=== PATIENT | female | born 1945 | race Caucasian/White ===

== ENCOUNTER → 2023-12-11 12:44 | Outpatient (REF) | payer OTHER, SELFPAY | LOC: HWLAB 12:44 | PROVIDERS: ATTENDING PHYSICIAN Thoracic Surgery (Cardiothoracic Vascular Surgery); FAMILY PHYSICIAN Family Medicine | DX: I71.03 Dissection of thoracoabdominal aorta (principal); I71.019 Dissection of thoracic aorta, unspecified; I34.0 Nonrheumatic mitral (valve) insufficiency; I71.011 Dissection of aortic arch | CPT/HCPCS: 82565 ==

== ENCOUNTER → 2023-12-18 13:16 | Outpatient (REF) | payer OTHER, SELFPAY | LOC: HWRCS 13:16 | PROVIDERS: ATTENDING PHYSICIAN Internal Medicine Cardiovascular Disease; FAMILY PHYSICIAN Family Medicine; REFERRING PHYSICIAN Thoracic Surgery (Cardiothoracic Vascular Surgery) | DX: I71.03 Dissection of thoracoabdominal aorta (principal); I34.0 Nonrheumatic mitral (valve) insufficiency; I35.1 Nonrheumatic aortic (valve) insufficiency | CPT/HCPCS: 93306 ==

== ENCOUNTER → 2024-01-01 12:14 | Outpatient (REF) | payer OTHER, SELFPAY ==
[2024-01-01 16:02] LABS: ALT (SGPT) 18 U/L (0-35); AST (SGOT) 31 U/L (14-36); Albumin 4.2 g/dl (3.5-5.0); Alkaline Phosphatase 70 U/L (38-126); Blood Urea Nitrogen 22 mg/dl (7-17); Calcium 9.8 mg/dl (8.4-10.2); Carbon Dioxide 27 mmol/L (22-30); Chloride 101 mmol/L (98-107); Glucose 106 mg/dl (70-99); HDL Cholesterol 69 mg/dl; LDL Cholesterol, Calculated 59 mg/dl; Potassium 4.2 mmol/L (3.5-5.1); Sodium 141 mmol/L (135-145); Total Bilirubin 0.8 mg/dl (0.2-1.3); Total Cholesterol 146 mg/dl (50-199); Triglyceride 92 mg/dl (10-149); Very Low Density Lipoprotein 18 mg/dl (0-30); eGFR 57.31
[2024-01-01 16:04] LABS: % Basophils 0.8 % (0-2); % Eosinophils 2.7 % (0-6); % Immature Granulocytes 0.2 % (0-0.5); % Lymphocytes 17.7 % (20.5-51.1); % Monocytes 9.9 % (1.7-9.3); % Neutrophils 68.7 % (42.2-75.2); Absolute Eosinophils 0.1 10^3/uL (0-0.7); Absolute Lymphocytes 0.9 10^3/uL (1.2-3.4); Absolute Monocytes 0.5 10^3/uL (0.1-0.6); Absolute Neutrophils 3.6 10^3/uL (1.4-6.5); Hematocrit 40.3 % (37.0-47.0); Hemoglobin 13.4 g/dL (12.0-16.0); Mean Corp Hgb Conc. 33.3 g/dL (33.0-37.0); Mean Corpuscular Volume 93.3 fL (81.0-99.0); Nucleated Red Blood Cells % 0 %; Platelet Count 233 10^3/uL (130-400); Red Blood Cell Count 4.32 10^6/uL (4.20-5.40); Red Cell Dist. Width 13.3 % (11.5-14.5); White Blood Cell Count 5.3 10^3/uL (4.8-10.8)
[2024-01-01 16:20] LABS: Vitamin D, 25-OH*** 49.9 ng/mL (30-80)
[2024-01-01 16:34] LABS: TSH Reflex To Free T4 3.62 uIU/ml (0.47-4.68)
[2024-01-01 16:53] LABS: Vitamin B12 > 1000 pg/ml (239-931)
[2024-01-02 09:09] LABS: Intact PTH 87.2 pg/ml (13.6-85.8)
== END ==
LOC: HWLAB 12:14
PROVIDERS: ATTENDING PHYSICIAN Family Medicine; REFERRING PHYSICIAN Internal Medicine Cardiovascular Disease
DX: E78.2 Mixed hyperlipidemia (principal); E21.3 Hyperparathyroidism, unspecified; E55.9 Vitamin D deficiency, unspecified; E53.8 Deficiency of other specified B group vitamins; Z13.1 Encounter for screening for diabetes mellitus; R53.83 Other fatigue; Z13.29 Encounter for screening for other suspected endocrine disorder
CPT/HCPCS: 36415; 80053; 80061; 82306; 82607; 83970; 84443; 85025

== ENCOUNTER → 2024-05-28 09:28 | Outpatient (REF) | payer OTHER, SELFPAY ==
[2024-05-28 10:16] LABS: % Eosinophils 3.4 % (0-6); % Immature Granulocytes 0.4 % (0-0.5); % Lymphocytes 16.1 % (20.5-51.1); % Monocytes 10.4 % (1.7-9.3); % Neutrophils 68.7 % (42.2-75.2); Absolute Basophils 0.1 10^3/uL (0-0.2); Absolute Eosinophils 0.2 10^3/uL (0-0.7); Absolute Lymphocytes 0.8 10^3/uL (1.2-3.4); Absolute Monocytes 0.5 10^3/uL (0.1-0.6); Absolute Neutrophils 3.5 10^3/uL (1.4-6.5); Hematocrit 39.5 % (37.0-47.0); Hemoglobin 13.3 g/dL (12.0-16.0); Mean Corp Hgb Conc. 33.7 g/dL (33.0-37.0); Mean Corpuscular Hgb 32.3 pg (27.0-31.0); Mean Corpuscular Volume 95.9 fL (81.0-99.0); Mean Platelet Volume 9.1 fL (7.4-10.4); Nucleated Red Blood Cells % 0 %; Platelet Count 214 10^3/uL (130-400); Red Blood Cell Count 4.12 10^6/uL (4.20-5.40)
[2024-05-28 10:43] LABS: ALT (SGPT) 44 U/L (0-35); AST (SGOT) 41 U/L (14-36); Albumin 4.3 g/dl (3.5-5.0); Alkaline Phosphatase 83 U/L (38-126); Blood Urea Nitrogen 23 mg/dl (7-17); Calcium 10.3 mg/dl (8.4-10.2); Carbon Dioxide 30 mmol/L (22-30); Chloride 104 mmol/L (98-107); Glucose 97 mg/dl (70-99); HDL Cholesterol 65 mg/dl; LDL Cholesterol, Calculated 65 mg/dl; Potassium 4.8 mmol/L (3.5-5.1); Sodium 142 mmol/L (135-145); Total Bilirubin 0.9 mg/dl (0.2-1.3); Total Cholesterol 145 mg/dl (50-199); Triglyceride 77 mg/dl (10-149); Very Low Density Lipoprotein 15 mg/dl (0-30)
[2024-05-28 10:49] LABS: Intact PTH 62.8 pg/ml (13.6-85.8)
[2024-05-28 11:24] LABS: Vitamin B12 972 pg/ml (239-931)
== END ==
LOC: REG 09:28
PROVIDERS: ATTENDING PHYSICIAN Family Medicine
DX: E78.2 Mixed hyperlipidemia (principal); E21.3 Hyperparathyroidism, unspecified; E55.9 Vitamin D deficiency, unspecified; E53.8 Deficiency of other specified B group vitamins; Z13.1 Encounter for screening for diabetes mellitus; R53.83 Other fatigue
CPT/HCPCS: 36415; 80053; 80061; 82306; 82607; 83970; 85025

== ENCOUNTER 2024-09-02 15:06 | Emergency (ER) | payer OTHER, SELFPAY ==
[2024-09-02 15:26] VITALS: BP 119/79
--- NOTE | 2024-09-02 16:22 | ED.SKININJ ---
HPI-Injury
General
Chief Complaint: Wound Check/Suture Removal
Source: patient
Exam Limitations: none
Time Seen by Provider: 09/02/24 16:08
History of Present Illness-Injury
Initial Injury comments:
79-year-old female presents for a wound on her scalp. She needs sayra removed from her scalp. She was here about a week ago and had been placed. No loss of conscious. No other complaints
Past History
Past History
ED Past Medical History: HTN and Other (Aortic dissection, arthritis, epistaxis); Negative CVA or NIDDM
ED Past Surgical History: Cardiac (Aortic dissection repair)
Social History
Tobacco: Non-smoker
Alcohol: None
Drug: None
Personal:
Living: with family
Employment: Other
Family History
Family History: Other (Noncontributory)
Phy Exam
Physical Exam
Physical Exam:
General: Well-appearing female no acute distress
HEENT: Normocephalic small hematoma noted posterior scalp with 3 intact sayra no surrounding erythema
Course
Vital Signs
Initial and Last Documented VS:
Initial Vital Signs
Temp Pulse Resp BP Pulse Ox
98.0 F 68 20 119/79 98
09/02/24 15:26 09/02/24 15:26 09/02/24 15:26 09/02/24 15:26 09/02/24 15:26
Last Documented Vital Signs
Temp Pulse Resp BP Pulse Ox
98.0 F 68 20 119/79 98
09/02/24 15:26 09/02/24 15:26 09/02/24 15:26 09/02/24 15:26 09/02/24 15:26
MDM/Problems Addressed
Differential Diagnosis Includes:
Here for staple removal. No signs of infection. Wound appears well. The sayra were removed without incident. Stable for discharge
*Pulse Oximetry
SaO2: 98
Oxygen Mode of Delivery: Room air
Patient hypoxic: no
*Critical Care Note
Total Time (30-74mins, 75-104mins- exclusive of procedures): Not Applicable
ED Attending Note
-
Portions of this chart may have been created with voice recognition software.� Occasional wrong word or��sound alike� substitutions may have occurred due to the inherent limitations of voice recognition software.
Discharge Plan
Departure
Patient Disposition: Home (Routine Discharge)
Date of Disposition: 09/02/24
Time of Disposition: 16:23
Patient with high blood pressure during this ER visit?: No
Discharge Problem:
Removal of sayra
Instructions: Stitches and sayra
Prescriptions:
No Action
meloxicam [Mobic] 15 MG tablet
15 mg PO PRN PRN (Reason: knee pain)
cyclobenzaprine 10 MG tablet
10 mg PO HS
ondansetron HCl 4 MG tablet
4 mg PO Q8 PRN (Reason: nausea)
metoprolol tartrate 50 MG tablet
25 mg PO BID
hydrochlorothiazide 12.5 MG capsule
12.5 mg PO DAILY
Activity Restrictions/Additional Instructions:
You may wash the area as you normally would. Return if needed.
Interventions
Interventions:
*General Assessment Last Done: 09/02/24 15:26
Discharge Date and Time
Print Language: ARMENIAN
== END 2024-09-02 17:05 | disposition home or self-care (01) ==
LOC: EMR 15:06
PROVIDERS: EMERGENCY PHYSICIAN Emergency Medicine
DX: S01.01XD Laceration without foreign body of scalp, subsequent encounter (principal); X58.XXXD Exposure to other specified factors, subsequent encounter
CPT/HCPCS: 99281

== ENCOUNTER 2024-09-16 08:27 | Day surgery (SDC) | payer OTHER, SELFPAY | END 2024-09-16 11:49 | disposition home or self-care (01) | LOC: CATH 08:27 | PROVIDERS: ATTENDING PHYSICIAN Internal Medicine; FAMILY PHYSICIAN Family Medicine; OTHER PHYSICIAN Internal Medicine Cardiovascular Disease; OTHER PHYSICIAN Thoracic Surgery (Cardiothoracic Vascular Surgery) | DX: I48.0 Paroxysmal atrial fibrillation (principal); Z79.01 Long term (current) use of anticoagulants; I44.0 Atrioventricular block, first degree | CPT/HCPCS: 92960; 93005 ==

== ENCOUNTER → 2024-12-02 14:34 | Outpatient (REF) | payer OTHER, SELFPAY | LOC: HWRCS 14:34 | PROVIDERS: ATTENDING PHYSICIAN Nurse Practitioner; FAMILY PHYSICIAN Family Medicine | DX: I48.0 Paroxysmal atrial fibrillation (principal); I34.0 Nonrheumatic mitral (valve) insufficiency; I35.1 Nonrheumatic aortic (valve) insufficiency | CPT/HCPCS: 93306 ==

== ENCOUNTER → 2024-12-18 12:54 | Outpatient (REF) | payer OTHER, SELFPAY ==
[2024-12-18 15:07] LABS: Blood Urea Nitrogen 32 mg/dl (7-17)
== END ==
LOC: RAD 12:54
PROVIDERS: ATTENDING PHYSICIAN Internal Medicine Critical Care Medicine; FAMILY PHYSICIAN Family Medicine
DX: R60.0 Localized edema (principal); R06.02 Shortness of breath; R93.89 Abnormal findings on diagnostic imaging of other specified body structures; Z01.812 Encounter for preprocedural laboratory examination
CPT/HCPCS: 36415; 71275; 82565; 84520; 93970; Q9967